=== PATIENT | female | born 1970 | race Caucasian/White ===

== ENCOUNTER → 2023-06-26 | Outpatient (CLI) | payer SELFPAY ==
--- NOTE | 2023-06-26 08:52 | VDLE_ITS ---
Reason For Study: Rt Calf Pain RIGHT LEFT CFV is compressible, spontaneous, phasic, FV is compressible, spontaneous, phasic, competent and demonstrates normal competent and demonstrates normal augmentation. augmentation. FV is compressible, spontaneous, phasic, competent and demonstrates normal augmentation. POP V is compressible, spontaneous, phasic, competent and demonstrates normal augmentation. T/P Trunk is compressible. PTV is compressible. RT PerV is compressible. SFJ is INCOMPETENT and measures 0.74 cm. GSV proximal thigh measures 0.29 x 0.23 cm. GSV at knee measures 0.23 x 0.24 cm. GSV above knee is competent. GSV below knee is INCOMPETENT for greater than 0.5 seconds. SSV proximal calf is INCOMPETENT for greater than 0.5 seconds and measures 0.54 x 0.63 cm. ASV proximal thigh is INCOMPETENT for greater than 0.5 seconds and measures 0.59 x 0.70 cm. ASV mid calf is INCOMPETENT for greater than 0.5 seconds and measures 0.51 x 0.54 cm. Perforating vessel prox calf approximately 5cm distal to knee is INCOMPETENT for greater than 0.5 seconds and measures 0.27 x 0.30 cm. Procedure This is a venous duplex using B-mode, color flow and spectral Doppler. Exam performed in department. The exam was diagnostic. A preliminary report was called and/or faxed to [facility] / Tosha Roberson. VL/Venous Duplex US, Unilateral Interpretation Summary Deep veins of the right lower extremity are patent and compressible segmentally . There is no evidence of right lower extremity deep vein thrombosis. The right great sapheno us vein appears patent and compressible segmentally. Positive for reflux in the right saphenofemoral junction, great saphenous vein below the knee, small saphenous vein, accessory saphenous vein in the thigh, accessory saphenous vein in the calf, and proximal calf steward/stewardess wine. Ordering Physician: ROBERSON, TOSHA Referring Physician: Macho Raoz Performed By: Santiago Schafer RVT
== END | disposition home or self-care (01) ==
LOC: CVS 08:51
PROVIDERS: PCP Family Medicine
DX: M79.661 Pain in right lower leg (principal)
CPT/HCPCS: 93971

== ENCOUNTER 2023-07-30 02:00 | Emergency (ER) | payer OTHER, SELFPAY ==
[2023-07-30 02:00] VITALS: BP 188/92; PULSE 75; RESP 16; TEMP 36.6; O2SAT 94; BMI 33.8
--- NOTE | 2023-07-30 02:26 | RAD_ITS ---
EXAM: XR CHEST, 2 VIEWS CLINICAL INDICATION: fever fever TECHNIQUE: Frontal and lateral views of the chest. COMPARISON: No relevant prior studies available. FINDINGS: LUNGS AND PLEURAL SPACES: Unremarkable. No consolidation or edema. No pneumothorax. No effusion. HEART: Unremarkable. Cardiac silhouette not enlarged. MEDIASTINUM: Central airways and mediastinal contour are unremarkable. BONES/JOINTS: There are multilevel degenerative changes in the visualized spine. No acute fracture. SOFT TISSUES: Unremarkable. RAD/Chest PA and Lateral IMPRESSION: No acute findings in the chest. Electronically Signed: Wilner Gloria MD at 3:21 EST Reading Location ID and State: [facility] / [place] , Service support ,
--- NOTE | 2023-07-30 02:26 | EKG12_ITS ---
Test Reason : ABD PAIN Blood Pressure : / mmHG Vent. Rate : 067 BPM Atrial Rate : 067 BPM P-R Int : 184 ms QRS Dur : 090 ms QT Int : 412 ms P-R-T Axes : 072 025 012 degrees QTc Int : 435 ms Normal sinus rhythm Normal ECG Confirmed by RENETTA HAGEN, JENNIFER ([id number]), publishing editor FERNY BAILEY ([id number]) on 08/05/2023 10:01:49 AM Referred By: Confirmed By:GABRIELLE JACKSON MD
[2023-07-30 02:35] LABS: Bacteria 0 SEEN /hpf (None Seen); Mucous, Urine 0 SEEN /hpf (<or=2+); Red Blood Cells-Urine 0 SEEN /hpf (0-5); Squamous Epithelial Cells - UA 0 SEEN /hpf (5-10); White Blood Cells 0 SEEN /hpf (0-5)
--- OUTSIDE RECORDS SUMMARY | 2023-07-30 02:39 | XMS RPT_ITS | CCD ---
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 Ambulatory Start: 05-20-2023 End: 05-20-2023 ambulatory [facility] Ambulato ry Summary Purpose Family History No Family History Records Found Advance Directives No Advanced Directives Records Found Additional Source Comments INFORMATION SOURCE (unrecogn ized section and content) FOR RECORDS PERTAINING TO PATIENTS WHO ARE OR HAVE BEEN ENROLLED IN A CHEMICAL DEPENDENCY/SUBSTANCEABUSE PROGRAM, SOME INFORMATION MAY BE OMITTED. This clinical summary was aggregated from multiple sources. Caution should be exercised in using it in the provision of clinical care. This summary normalizes information from multiple sources, and as a consequence, information in this document may materially change the coding, format and clinical context of patient data. In addition, data may be omitted in some cases. CLINICAL DECISIONS SHOULD BE BASED ON THE PRIMARY CLINICAL RECORDS. [employer] [facility]. provides no warranty or guarantee of the accuracy or completeness of information in this document.
[2023-07-30 02:42] LABS: Absolute Lymphocyte Count 2.28 X10^3/uL (0.83-4.51); Absolute Neutrophil Count 3.3 X10^3/uL (2.0-7.7); Basophil# 0.04 X10^3/uL; Basophil% 0.6 % (0-1); Eosinophil# 0.15 X10^3/uL; Eosinophils% 2.4 % (0-5); Hematocrit 40.7 % (37-47); Hemoglobin 13.7 g/dL (12.0-15.0); Lymphocyte # 2.28 X10^3/ul (0.83-4.51); Lymphocyte % 36.4 % (19-41); Mean Corp Hgb Conc 33.7 g/dL (32-36); Mean Corpuscular Hgb 27.2 pg (27.0-32.0); Mean Corpuscular Volume 80.8 fL (81-99); Mean Platelet Vol. 9.2 fl (6.2-12.0); Monocyte# 0.49 X10^3/uL; Monocyte% 7.8 % (0-10); NRBC Flagged by Analyzer 0 % (0-5); Neutrophil # 3.29 X10^3/uL (2.7-7.7); Neutrophil % 52.6 % (47-70); Platelet Count 219 K/mm3 (150-450); RBC Distribution Width CV 13.2 % (11.6-14.6); RBC Distribution Width SD 37.9 fl (35.1-43.9); Red Blood Count 5.04 M/mm3 (4.2-5.4); White Blood Count 6.3 K/mm3 (4.4-11.0)
[2023-07-30 02:43] LABS: Color, Urine Yellow (Yellow); Glucose, Dipstick Normal (Normal); Ketone-Dipstick Negative (Negative); Leukocyte Esterase-Dipstick Negative /ul (Negative); Nitrite-Dipstick Negative (Negative); Occult Blood-Urine 50 /ul (Negative); Protein-Dipstick Negative (Negative); Urine Bilirubin Dipstick Negative (Negative); Urine Clarity Clear (Clear); Urine Urobilinogen Normal (Normal)
--- NOTE | 2023-07-30 02:43 | EX.ED.DYSGE1 ---
HPI History of Present Illness Chief Complaint: Abd Pain Informant: patient and spouse/S.O. Narrative Narrative: Patient is a 52-year-old female presenting with spouse via EMS for fever, nausea, right upper quadrant abdominal discomfort and high blood pressure. Patient notes she has been having the GI symptoms for about 2 weeks and checked her blood pressure tonight it was 187/91. She had subjective fever today did not take any medication for her symptoms. This what triggered her to come in for evaluation tonight. Denies any associated chest pain, shortness of breath, cough or URI symptoms. Denies any urinary symptoms. States her bowel movements have been okay denies any black or blood in her stool. Notes that since she recently went to get well in [place] and was found to have high blood pressure there. She was put on some type of cleanse and given salt restrictions but not start any medications for blood pressure. Notes that she has surgical history of cholecystectomy. Is also been having about 9 months of ongoing right calf pain after an injury. She did see orthopedics at some point who recommended she follow-up with vascular. She had an outpatient venous duplex in June but they are not sure of the results. This was done at our hospital. No other complaints or concerns at this time. Denies any new injury, swelling or discomfort to her right lower extremity. PFSH PFSH Home Medications ascorbic acid (vitamin C) 500 mg tablet (C-500) 1 g PO DAILY 07/30/23 [History Last Taken Unknown] aspirin 325 mg capsule 325 mg PO DAILY 07/30/23 [History Last Taken Unknown] Allergy/AdvReac Type Severity Reaction Status Date / Time No Known Allergies Allergy Verified 07/30/23 02:04 Social History Smoking Status: Never smoker ROS ROS ED Constitutional Constitutional ED: Reports fever(s); Denies chills ENT ENT ED: Denies ear pain, rhinorrhea or sore throat Cardiovascular Cardiovascular: Denies chest pain Respiratory/Chest Respiratory/Chest: Denies cough Gastrointestinal Gastrointestinal: Reports abdominal pain and nausea; Denies constipation, diarrhea, melena or vomiting Genitourinary Genitourinary ED: Denies dysuria or hematuria Musculoskeletal Musculoskeletal: Reports other Details: right lower leg pain - chronic ; Denies arthralgias or myalgias Integumentary Denies Abrasions or rash Neurologic Neurologic: Denies headache(s), paresthesias or weakness Psychiatric Psychiatric: Denies anxiety Hematologic/Lymphatic Hematologic/Lymphatic: Denies easy bleeding or easy bruising EXAM Physical Exam Const Vital Signs: 07/30/23 02:00 07/30/23 04:00 07/30/23 06:00 Temperature 97.9 F Temperature Source Temporal Pulse Rate 75 78 79 Respiratory Rate 16 16 16 Blood Pressure 188/92 H 136/89 H 139/79 H Blood Pressure Mean 124 104 99 Pulse Ox 94 97 97 Oxygen Delivery Method Room Air Room Air Room Air 07/30/23 06:47 Temperature 98.1 F Temperature Source Pulse Rate 78 Respiratory Rate 16 Blood Pressure 139/79 H Blood Pressure Mean 99 Pulse Ox 97 Oxygen Delivery Method Positive well nourished and well developed General Appearance ED: well developed and NAD HEENT Reports moist mucous membranes Eyes PERRL Neck supple and no JVD Chest Wall inspection of chest normal and palpation of chest normal Resp normal respiratory effort and clear to auscultation bilaterally Cardio regular rate, regular rhythm and no murmurs GI normal to inspection, nondistended, normoactive bowel sounds, non-tender and non-distended Palpation: soft; Negative for tender or guarding Back/Spine no CVA tenderness Extremity normal to inspection Extremity Narrative: Patient points to her right lateral mid calf as area of pain. There is some slight swelling that is soft and nontender to the mid trejo that patient states is chronic. Other associated varicose veins of the legs, right worse than left. 2+ bilateral DP pulses. No palpable cords and compartments are soft. No bony tenderness appreciated. General Extremety ED: Negative for edema or tenderness General Extremity: Negative for edema Neuro oriented x3 Sensorium / Orientation: alert Motor Exam: Negative for general weakness Psych mental status grossly normal Skin no rashes or lesions noted and no wounds MDM MDM MDM Narrative Medical decision making narrative: Patient presents for vague sensation of nausea right upper quadrant abdominal pain for the past 2+ weeks. She appears nontoxic no acute distress. Vital signs significant for hypertension. She is currently being monitored for high blood pressure but is not on any medication. She reports a fever tonight however she is currently afebrile here did not take anything for fever prior to arrival. Differential includes pancreatitis, choledocholithiasis, small bowel obstruction, pneumonia, referred cardiac pain, gastritis, peptic ulcer disease. Patient is given Zofran in the emergency room for her symptoms. She does not have any reproducible tenderness to palpation. EKG does not show any acute ischemic changes. High-sensitivity troponin is normal at 10. I do not think this needs to be trended given the longevity of her symptoms. She has a mild transaminitis with a normal bilirubin and mildly elevated lipase of 238. CBC is normal and she does not have a leukocytosis. No signs of GHASSAN. Urinalysis is not consistent with infection or hematuria. X-ray of the tib-fib is also obtained as patient been having ongoing pain to that area. This is negative for any acute process on review by myself as well as radiology. CT of the pelvis is added on given the mild elevation of lipase and transaminitis. Patient has multiple cyst on her pancreas that will require follow-up however there is no findings consistent with acute or chronic pancreatitis. 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 It is possible this could be contributing to her vague pain. This is discussed with vascular on-call, Dr. Serrano. He agrees that the clot if it is subacute could be causing the pain but has no acute intervention recommendations. States he can follow-up in the office. Patient will be referred to Dr. Serranofor further evaluation of her varicose veins as well as this abnormality of her gastroduodenal artery branch. Patient and family agreeable this plan of care. Patient discharged home with a prescription for Zofran and antacid. Discussed CT findings at length and need for outpatient follow-up as well as monitoring of her pancreatic cyst. Is given a copy of her CT report. Given return precautions. Discharged home in stable condition. History & Record Review Additional record(s) reviewed:: Other (Outpatient venous duplex study of the lower extremity--no acute DVT) Lab Data Attestation: I reviewed the patient's lab results. Labs: Laboratory Results - last 24 hr 07/30/23 07/30/23 02:27 02:28 WBC 6.3 RBC 5.04 Hgb 13.7 Hct 40.7 MCV 80.8 L MCH 27.2 MCHC 33.7 RDW Std Deviation 37.9 RDW Coeff of Johnathan 13.2 Plt Count 219 MPV 9.2 Immature Gran % (Auto) 0.200 Neut % (Auto) 52.6 Lymph % (Auto) 36.4 Kenton % (Auto) 7.8 Eos % (Auto) 2.4 Baso % (Auto) 0.6 Absolute Neuts (auto) 3.3 Absolute Lymphs (auto) 2.28 Nucleated RBC % 0 Sodium 133 L Potassium 3.8 Chloride 97 L Carbon Dioxide 28.0 Anion Gap 8 BUN 7 Creatinine 0.68 Estim Creat Clear Calc 109.98 Est GFR (MDRD) Af Amer 116 Est GFR (MDRD) Non-Af 96 BUN/Creatinine Ratio 10.3 Glucose 137 H Calcium 9.3 Total Bilirubin 0.80 AST 53 H ALT 95 H Alkaline Phosphatase 85 Troponin I High Sens 10 Total Protein 7.8 Albumin 4.1 Globulin 3.7 Albumin/Globulin Ratio 1.1 Lipase 238 H Urine Color Yellow Urine Clarity Clear Urine pH 7.0 Ur Specific Mears 1.010 Urine Protein Negative Urine Glucose (UA) Normal Urine Ketones Negative Urine Occult Blood 50 H Urine Nitrite Negative Urine Bilirubin Negative Urine Urobilinogen Normal Ur Leukocyte Esterase Negative Urine RBC 0 SEEN Urine WBC 0 SEEN Ur Squamous Epith Cells 0 SEEN Urine Bacteria 0 SEEN Urine Mucus 0 SEEN Radiography Chest X-Ray - ED: 2 View, Read by ED Physician, Read by Radiologist and No Acute Disease Diagnostic Testing: Clinical Impression(s) from Imaging Studies Chest X-Ray 07/30/23 02:26 IMPRESSION: No acute findings in the chest. Electronically Signed: Wilner Gloria MD at 3:21 EST , Tibia/Fibula X-Ray 07/30/23 02:55 IMPRESSION: Negative right tibia and fibula x-rays. Electronically Signed: Wilner Gloria MD at 4:24 EST , Abdomen/Pelvis CT 07/30/23 03:11 IMPRESSION: 1. 8mm and 3 mm cystic lesions in the pancreas. Recommend a contrast-enhanced, pancreas-protocol abdominal CT or MR in 1 year. 2. Aside from the above cystic lesions, there is no visualized radiographic evidence for acute or chronic pancreatitis at this time. 3. 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 Recommend follow-up abdominal CT scan or MRI to confirm stability. 4. Fatty liver. 5. Previous cholecystectomy. 6. Inferior periumbilical hernia contains fat, but no bowel. 7. 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 Discharge Plan Triage Chief Complaint: Abd Pain ED Provider: Pati Tian Dx/Rx/DC Orders Clinical Impression: Acute upper abdominal pain, Aneurysm, gastroduodenal artery, Pancreatic cyst Instructions: ED Abdominal Pain Unkn Cause Fem, ED Gastritis Ulcer No Abx Prescriptions: No Action aspirin 325 mg capsule 325 mg PO DAILY ascorbic acid (vitamin C) [C-500] 500 mg tablet 1 g PO DAILY Primary Care Provider: Macho Razo Referrals: Francesco Serrano MD [Med Staff - Active Staff] - As soon as possible Macho Razo, [Primary Care Provider] - Activity Restrictions/Additional Instructions: Your workup today revealed a partially thrombosed aneurysm to a branch of gastroduodenal artery. This is in the area of your discomfort of your abdomen. I suspect it is causing your pain. Per discussion with our specialist, Dr. Serrano, no acute intervention is needed for this. Please follow-up outpatient. Dr. Serrano can also follow-up with you about your varicose veins. You also have some cyst in your pancreas that need to be followed up with but not for another year. Please discuss this with your primary care doctor. Your blood pressure does improve on the ER and please continue to monitor it. If you have worsening of your pain or further progression or symptoms please return to the emergency room. Disposition Disposition: Home, Self Care Discharge Date/Time: 07/30/23 06:57
--- NOTE | 2023-07-30 02:55 | RAD_ITS ---
EXAM: XR RIGHT TIBIA AND FIBULA, 2 VIEWS CLINICAL INDICATION: pain pain TECHNIQUE: Frontal and lateral views of the right tibia and fibula. COMPARISON: No relevant prior studies available. FINDINGS: BONES/JOINTS: Unremarkable. No acute fracture. No subluxation. Normal alignment. Preservation of the joint space. No sclerotic or destructive changes observed. SOFT TISSUES: Unremarkable. No soft tissue swelling or gas. No radiopaque foreign body. RAD/Tibia & Fibula 2 Views IMPRESSION: Negative right tibia and fibula x-rays. Electronically Signed: Wilner Gloria MD at 4:24 EST Reading Location ID and State: [facility] / [place] , Service support ,
[2023-07-30 03:07] LABS: ALB/GLOB Ratio 1.1 RATIO (0.9-2.4); AST(SGOT) 53 U/L (15-37); Alanine Aminotransfer ALT/SGPT 95 U/L (13-56); Albumin, Serum 4.1 g/dL (3.2-5.0); Alkaline Phosphatase 85 U/L (45-117); Anion Gap 8 (5-15); BUN 7 mg/dL (7-18); BUN/Creat Ratio 10.3 RATIO (10-20); Calcium,Total 9.3 mg/dL (8.5-10.1); Chloride 97 mmol/L (98-107); Creatinine, Serum 0.68 mg/dL (0.55-1.02); EST Glomerular Filtration Rate 96 mL/min (>60); Est Glom Filt Rate - Afr Amer 116 mL/min (>60); Estimated Creatinine Clearance 109.98 ml/min; Globulin 3.7 g/dL (2.2-4.2); Glucose 137 mg/dL (74-106); Lipase 238 U/L (13-75); Potassium 3.8 mmol/L (3.5-5.1); Protein, Total 7.8 g/dL (6.4-8.2); Sodium Level 133 mmol/L (136-145); Troponin-I HS 10 pg/mL (3.0-54.0)
--- NOTE | 2023-07-30 03:11 | CT_ITS ---
EXAM: CT ABDOMEN AND PELVIS WITH INTRAVENOUS CONTRAST CLINICAL INDICATION: RUQ pain, elevated lipase RUQ pain, elevated lipase TECHNIQUE: Helically acquired images were obtained of the abdomen and pelvis with intravenous contrast. This CT exam was performed using one or more of the following dose reduction techniques: automated exposure control, adjustment of the mA and/or kV according to patient size, and/or use of iterative reconstruction technique. CONTRAST: IV 100mL [id number]-370 RADIATION DOSE: CTDIvol = 17.13 mGy, DLP = 1095.55 mGy-cm COMPARISON: No relevant prior studies available. FINDINGS: LOWER THORAX: There is mild atelectasis in the visualized lung bases. No cardiomegaly. No significant pericardial effusion. ABDOMEN: LIVER: There is decreased attenuation of the liver consistent with fatty infiltration. GALLBLADDER AND BILE DUCTS: Gallbladder is surgically absent. No intra- or extrahepatic biliary ductal dilation. PANCREAS: As seen on axial images 54-55, there is an 8 mm cystic lesion in the head of the pancreas As seen on axial image 47, there is an 8 mm cystic lesion in the body of the pancreas. As seen on image 44, there is a 3 mm cystic lesion in the tail the pancreas. The pancreas otherwise appears normal and there are no visualized peripancreatic inflammatory changes. SPLEEN: Unremarkable. Normal size without focal cystic or solid mass. ADRENALS: Unremarkable. No nodules. KIDNEYS AND URETERS: Unremarkable. Normal renal size and position. No hydronephrosis. STOMACH AND BOWEL: Unremarkable. No stomach or bowel distention. No focal inflammatory change. PELVIS: APPENDIX: The appendix is not identified. There is no visible evidence for acute appendicitis. BLADDER: Unremarkable. REPRODUCTIVE: Unremarkable as visualized. No mass. ABDOMEN and PELVIS: INTRAPERITONEAL SPACE: Unremarkable. No ascites or other fluid collection. No free air. BONES/JOINTS: There are multilevel degenerative changes in the visualized spine. No suspicious lytic or blastic abnormality. SOFT TISSUES: There is an inferior periumbilical hernia, which contains fat. 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 There is no evidence for rupture. There is retrograde filling of the left gonadal vein, consistent with venous valvular incompetence. There are associated bilateral adnexal varices. LYMPH NODES: Unremarkable. No enlarged lymph nodes. CT/Abdomen/Pelvis W IV Cont ONLY IMPRESSION: 1. 8mm and 3 mm cystic lesions in the pancreas. Recommend a contrast-enhanced, pancreas-protocol abdominal CT or MR in 1 year. 2. Aside from the above cystic lesions, there is no visualized radiographic evidence for acute or chronic pancreatitis at this time. 3. 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 Recommend follow-up abdominal CT scan or MRI to confirm stability. 4. Fatty liver. 5. Previous cholecystectomy. 6. Inferior periumbilical hernia contains fat, but no bowel. 7. 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 Electronically Signed: Wilner Gloria MD at 5:08 EST Reading Location ID and State: [facility] / [place] , Service support ,
[2023-07-30 04:00] VITALS: BP 136/89; PULSE 78; RESP 16; O2SAT 97
[2023-07-30] MEDS: Ondansetron 4 MG/2 ML Vial IV (04:04)
[2023-07-30 06:00] VITALS: BP 139/79; PULSE 79; RESP 16; O2SAT 97
[2023-07-30 06:47] VITALS: BP 139/79; PULSE 78; RESP 16; TEMP 36.7; O2SAT 97
== END 2023-07-30 06:57 | disposition home or self-care (01) ==
PROVIDERS: Emergency Provider Emergency Medicine; PCP Family Medicine; Visit Provider Emergency Medicine
DX: R10.11 Right upper quadrant pain (principal); I72.8 Aneurysm of other specified arteries; K86.2 Cyst of pancreas; R11.0 Nausea; M79.661 Pain in right lower leg; Z90.49 Acquired absence of other specified parts of digestive tract; R50.9 Fever, unspecified
CPT/HCPCS: 71046; 73590; 74177; 80053; 81001; 83690; 84484; 85025; 87631; 93005; 96374; 99283; Q9967; J2405